=== PATIENT | male | born 1990 | race Caucasian/White ===

== ENCOUNTER 2023-06-02 03:10 | Emergency (ER) | payer BC ==
[~2023-06-02] VITALS: Ht 182.9 cm; Wt 83.9 kg
[2023-06-02 03:10] VITALS: BP 139/104; PULSE 103; RESP 18; TEMP 97.3; O2SAT 98
[2023-06-02] MEDS ORDERED: KETOROLAC 30 MG/ML VIAL IM ONE (04:35)
[2023-06-02] MEDS ORDERED: HYDROcodone/APAP 5/325 MG 1 TAB TAB PO ONE (04:35)
[2023-06-02] MEDS ORDERED: ACET-8905 PO (04:49)
[2023-06-02] MEDS ORDERED: NAPR-54 PO (04:49)
[2023-06-02] MEDS ORDERED: fentaNYL citrate 0.05 MG/ML VIAL NS ONE (05:35)
[2023-06-02 06:15] VITALS: BP 144/99; PULSE 100; RESP 20; O2SAT 99
[2023-06-02] MEDS ORDERED: NALO4SPR NS (06:15)
== END 2023-06-02 06:15 | disposition home or self-care (01) ==
LOC: MED 03:10
DX: S52.591A Other fractures of lower end of right radius, initial encounter for closed fracture (principal); F41.9 Anxiety disorder, unspecified; F32.9 Major depressive disorder, single episode, unspecified; Z98.890 Other specified postprocedural states; Z79.899 Other long term (current) drug therapy; X58.XXXA Exposure to other specified factors, initial encounter; Y93.89 Activity, other specified; Y92.89 Other specified places as the place of occurrence of the external cause; Y99.8 Other external cause status
CPT/HCPCS: 29105; 73090; 96372; 99283; J1885; J3010; Q0092